=== PATIENT | female | born 1965 | race Two or more races ===

== ENCOUNTER 2023-10-14 09:51 | Outpatient (CLI) | payer OTHER | END 2023-10-14 13:34 | disposition home or self-care (01) | LOC: RX STUDY 09:51 | PROVIDERS: ATTEND Surgery | DX: K60.3 Anal fistula (principal); K62.5 Hemorrhage of anus and rectum; K62.89 Other specified diseases of anus and rectum; N82.4 Other female intestinal-genital tract fistulae; K64.8 Other hemorrhoids ==

== ENCOUNTER 2023-12-08 07:30 | Day surgery (SDC) | payer OTHER ==
[2023-11-16 11:47] LABS: HEMATOCRIT 39.2 % (36.0-45.00); HEMOGLOBIN 13.3 g/dL (12.0-15.00); MEAN CELL VOLUME 87.5 fL (80.00-100.00); MEAN CORPUSCULAR HEMOGLOBIN 29.7 pg (27.00-32.0); MEAN CORPUSCULAR HGB CONC 33.9 g/dl (32.0-36.0); PLATELET COUNT 207 K/uL (150-450); RED BLOOD COUNT 4.47 M/uL (4.00-6.00); RED CELL DISTRIBUTION WIDTH 13.1 % (11.5-14.5)
[2023-11-16 11:56] LABS: PH,URINE 6.5 (5.0-8.0); URINE APPEARANCE Clear; URINE BILIRRUBIN Negative (NEGATIVE); URINE BLOOD Negative; URINE COLOR Yellow; URINE GLUCOSE Negative (NEGATIVE); URINE LEUKOCYTE Negative; URINE NITRATE Negative; URINE PROTEIN Negative (NEGATIVE); URINE UROBILINOGEN 0.2 E.U./dl
[2023-11-16 11:58] LABS: URINE BACTERIA 70.5 uL (0.0-1933); URINE EPITHELIAL CELLS 4.7 uL (0.0-38.8); URINE RBC 5.6 uL (0.0-20.8)
[2023-11-16 12:07] LABS: ALBUMIN 4.3 gm/dL (3.4-5.0); BILIRUBIN TOTAL 0.64 mg/dL (0.3-1.2); CALCIUM 9.5 mg/dL (8.5-10.1); CREATININE SERUM 0.8 mg/dL (0.55-1.02); GFR 73.93; GLOBULINA 3.7 G/DL (2.4-3.5); POTASSIUM 4.36 mEq/L (3.5-5.1)
[2023-11-16 12:43] LABS: INR 0.96; PARTIAL THROMBOPLASTIN TIME 28.5 SECONDS (22.0-34.0); PROTHROMBIN TIME 10.1 SECONDS (9.0-11.5)
[2023-11-16 13:08] LABS: URINE WBC 1.2 uL (0.0-23.2)
[~2023-12-08 07:30] MED LIST: ZESTORETIC 20-1 EACH PO
[2023-12-08] MEDS ORDERED: TRAMADOL HCL50 MG PO (14:35)
== END 2023-12-08 19:55 | disposition home or self-care (01) ==
LOC: CIR.AMB 07:30
PROVIDERS: ATTEND Surgery
DX: K60.3 Anal fistula (principal); Z20.822 Contact with and (suspected) exposure to COVID-19; I10 Essential (primary) hypertension

== ENCOUNTER 2025-02-25 07:18 | Outpatient (CLI) | payer OTHER ==
[~2025-02-25 07:18] MED LIST changes: +TRAMADOL HCL50 MG PO
== END 2025-02-25 07:21 | disposition home or self-care (01) ==
LOC: MAMO-SONO 07:18
PROVIDERS: ATTEND General Practice
DX: K21.9 Gastro-esophageal reflux disease without esophagitis (principal); R10.9 Unspecified abdominal pain; N60.19 Diffuse cystic mastopathy of unspecified breast

== ENCOUNTER 2025-09-12 07:35 | Day surgery (SDC) | payer OTHER ==
[2025-09-06 13:41] VITALS: BP 111/76
[~2025-09-12] VITALS: Ht 160 cm; Wt 84.8 kg
[~2025-09-12 07:35] MED LIST changes: +DICY20TA PO
[2025-09-12] MEDS ORDERED: CEFTRIAXONE SODIUM 2,000 MG VIAL ONE (07:53)
[2025-09-12] MEDS ORDERED: METRONIDAZOLE/SODIUM CHLORIDE 500 MG/100 ML PIGGYBACK IV ONE (07:53)
[2025-09-12] MEDS ORDERED: DIBUCAINE 30 GM TUBE ONE (07:59)
[2025-09-12] MEDS ORDERED: POVIDONE-IODINE 118 ML BOTT TOP ONE (07:59)
[2025-09-12] MEDS ORDERED: HEMOSTATIC MATRIX 1 KIT KIT TOP ONE (07:59)
[2025-09-12] MEDS ORDERED: LIDOCAINE HCL 1%/EPINEPHRINE 20ML VIAL IJ ONE (07:59)
[2025-09-12] MEDS ORDERED: BUPIVACAINE HCL/MPF 0.5% 30ML VIAL ONE (07:59)
[2025-09-12] MEDS ORDERED: OXYCODONE HCL5 MG PO (10:44)
[2025-09-12] MEDS ORDERED: TAMSULOSIN HCL 0.4 MG CAP PO ONE ×2 (10:45→13:18)
[2025-09-12] MEDS ORDERED: ONDANSETRON HCL 2 MG/ML VIAL ONE (13:08)
== END 2025-09-12 16:20 | disposition home or self-care (01) ==
LOC: CIR.AMB 07:35
PROVIDERS: ATTEND Surgery
DX: K60.322 Anal fistula, complex, persistent (principal); N82.3 Fistula of vagina to large intestine; K62.5 Hemorrhage of anus and rectum; K62.89 Other specified diseases of anus and rectum; N82.4 Other female intestinal-genital tract fistulae